=== PATIENT | female | born 1985 | race African-American/Black ===

== ENCOUNTER 2022-05-14 18:05 | Observation (INO) | payer OTHER ==
[2022-05-14] MEDS ORDERED: ELECTROLYTE-148 SOLN 1,000 ML IV SCH ×2 (19:30→20:30)
[2022-05-14 20:02] LABS: CALCIUM 8.3 mg/dL (8.5-10.1)
[2022-05-14 20:03] LABS: ALBUMIN 2.7 g/dl (3.4-5.0); BLOOD UREA NITROGEN 5.1 mg/dL (7-18)
[2022-05-14 20:06] LABS: CREATININE 0.5 mg/dL (0.55-1.3)
[2022-05-14 20:08] LABS: BILIRUBIN,TOTAL 0.5 mg/dL (0.2-1); TOT PROT 5.9 g/dl (6.4-8.2)
[2022-05-14 20:13] LABS: BASO % 0.4 % (0-2.0); EOS % 0.5 % (0-4.5); LYMPH % 29.4 % (8-40); MCH 31.7 pg (25.7-33.7); MCHC 34.4 g/dl (32.0-36.0); MEAN CELL VOLUME 92.1 fl (80-96); MEAN PLT VOLUME 7.6 fl (7.5-11.1); MONO % 6.9 % (3.8-10.2); NEUT % 62.8 % (42.8-82.8); PLATELET COUNT 231 10^3/uL (134-434); RDW 14.2 % (11.6-15.6); WHITE BLOOD COUNT 7.5 K/mm3 (4.0-10.0)
[2022-05-14 20:31] LABS: PH,URINE 6.5 (5.0-8.0); URINE APPEARANCE CLEAR; URINE BILIRUBIN NEGATIVE (NEGATIVE); URINE COLOR YELLOW; URINE GLUCOSE (UA) NEGATIVE (NEGATIVE); URINE KETONE NEGATIVE (NEGATIVE); URINE LEUK ESTERASE NEGATIVE (NEGATIVE); URINE NITRITE NEGATIVE (NEGATIVE); URINE PROTEIN NEGATIVE (NEGATIVE)
[2022-05-14] MEDS ORDERED: BETAMET ACET/BETAMET NA PH 30 MG/5 ML VIAL IM ONE (22:00)
[2022-05-14] MEDS ORDERED: BETAMET ACET/BETAMET NA PH 30 MG/5 ML VIAL ONE (22:09)
[2022-05-15 01:36] VITALS: BMI 30.4
[2022-05-15 01:46] LABS: INR 0.99 (0.83-1.09); PROTHROMBIN TIME (PATIENT) 11.5 SEC (9.7-13.0)
[2022-05-15 01:48] LABS: ACTIVATED PTT 25.7 SECONDS (25.2-36.5)
[2022-05-15] MEDS ORDERED: BETAMET ACET/BETAMET NA PH 30 MG/5 ML VIAL IM ONE (10:45)
[2022-05-15 12:22] VITALS: BP 124/66; PULSE 74; RESP 20; TEMP 98
== END 2022-05-15 16:20 | disposition home or self-care (01) ==
LOC: JDEL 18:05 → JLDR 05-15 00:05
PROVIDERS: ADMIT Obstetrics & Gynecology; ATTEND Obstetrics & Gynecology
PROC: 3E033GC Introduction of Other Therapeutic Substance into Peripheral Vein, Percutaneous Approach (ICD-10-PCS; principal; 2022-05-15)
PROC: 3E0337Z Introduction of Electrolytic and Water Balance Substance into Peripheral Vein, Percutaneous Approach (ICD-10-PCS; 2022-05-15)
DX: O46.93 Antepartum hemorrhage, unspecified, third trimester (principal); Z3A.32 32 weeks gestation of pregnancy
CPT/HCPCS: 36415; 59025; 76817-TC; 76819-TC; 80053; 81003; 85025; 85610; 85730; 86780; 86850; 86900; 86901; 96372; C9803-CS; G0378; U0003; U0005

== ENCOUNTER 2022-05-18 03:43 | Inpatient (IN) | payer OTHER ==
[2022-05-18] MEDS ORDERED: ceFAZolin SODIUM 1 GM VIAL ONE (14:27)
[2022-05-18 14:41] LABS: BASO % 0.4 % (0-2.0); EOS % 0.2 % (0-4.5); HEMATOCRIT 35.5 % (32.4-45.2); HEMOGLOBIN 12.4 GM/dL (10.7-15.3); LYMPH % 28.2 % (8-40); MCH 31.8 pg (25.7-33.7); MEAN CELL VOLUME 90.9 fl (80-96); MEAN PLT VOLUME 7.2 fl (7.5-11.1); NEUT % 63.2 % (42.8-82.8); PLATELET COUNT 232 10^3/uL (134-434); RBC 3.91 M/mm3 (3.60-5.2); RDW 14.3 % (11.6-15.6); WHITE BLOOD COUNT 10.4 K/mm3 (4.0-10.0)
[2022-05-18] MEDS ORDERED: PHENYLEPHRINE HCL 10 MG/1 ML SINGLE DOSE VIAL ONE (14:45)
[2022-05-18] MEDS ORDERED: FENTANYL CITRATE/PF 50 MCG/ML VIAL ONE (14:45)
[2022-05-18] MEDS ORDERED: ONDANSETRON 4 MG/2 ML VIAL ONE (14:45)
[2022-05-18] MEDS ORDERED: morphine SULFATE/PF 1 MG/2 ML (2cc Syringe - QUVA) ONE (14:45)
[2022-05-18] MEDS ORDERED: OXYTOCIN 10 UNITS/ML VIAL ONE (14:45)
[2022-05-18] MEDS ORDERED: KETOROLAC TROMETHAMINE 30 MG/1 ML VIAL ONE (14:45)
[2022-05-18 14:54] LABS: ACTIVATED PTT 24.4 SECONDS (25.2-36.5); INR 0.9 (0.83-1.09); PROTHROMBIN TIME (PATIENT) 10.5 SEC (9.7-13.0)
[2022-05-18 14:58] VITALS: BMI 30.4
[2022-05-18 15:05] LABS: CALCIUM 8.4 mg/dL (8.5-10.1)
[2022-05-18 15:06] LABS: BLOOD UREA NITROGEN 6.9 mg/dL (7-18)
[2022-05-18 15:09] LABS: CREATININE 0.5 mg/dL (0.55-1.3)
[2022-05-18] MEDS ORDERED: ACETAMINOPHEN 325 MG TABLET (FP) PO PRN (15:09)
[2022-05-18] MEDS ORDERED: CEFAZOLIN SODIUM 2 GM in DEXTROSE 5%-WATER 100 ML IVPB ONE (15:09)
[2022-05-18] MEDS ORDERED: METHYLERGONOVINE MALEATE 0.2 MG/1 ML AMP IM PRN (15:09)
[2022-05-18] MEDS ORDERED: ELECTROLYTE-148 SOLN 1,000 ML IV SCH (15:15)
[2022-05-18 16:00] LABS: HIV INTERPRETATION NEGATIVE (NEGATIVE)
[2022-05-18] MEDS: OXYTOCIN 20 UNITS in 0.9% NS 20 UNIT/1,000 ML INFUS.BAG IV SCH (16:30)
[2022-05-18] MEDS ORDERED: OXYTOCIN 20 UNITS in 0.9% NS 20 UNIT/1,000 ML INFUS.BAG IV ONE (16:36)
[2022-05-18] MEDS ORDERED: ONDANSETRON 4 MG/2 ML VIAL IVPUSH PRN (16:39)
[2022-05-18 17:14] LABS: CORD BASE EXCESS -1.8 mmol/L (0-2); CORD HCO3 23.9 mmHg (20-29); CORD PCO2 44.2 mmHg (30-78); CORD pH 7.35 (7.14-7.44)
[2022-05-18 17:16] LABS: CORD HCO3 25.6 mmHg (20-29); CORD PCO2 56.4 mmHg (30-78); CORD pH 7.274 (7.14-7.44)
[2022-05-18] MEDS: CEFAZOLIN 1 GM in DEXTROSE 5%-WATER - 50 ML IVPB SCH (18:34)
[2022-05-19] MEDS: OXYTOCIN 20 UNITS in 0.9% NS 20 UNIT/1,000 ML INFUS.BAG IV SCH (02:15)
[2022-05-19] MEDS: CEFAZOLIN 1 GM in DEXTROSE 5%-WATER - 50 ML IVPB SCH ×2 (02:15→09:18)
[2022-05-19] MEDS ORDERED: oxyCODONE HCL 5 MG TABLET PO PRN (03:09)
[2022-05-19] MEDS: SIMETHICONE 80 MG TAB.CHEW (FP) PO PRN ×2 (06:20→20:41)
[2022-05-19 07:40] LABS: BASO % 0.7 % (0-2.0); EOS % 1.4 % (0-4.5); HEMATOCRIT 32.2 % (32.4-45.2); HEMOGLOBIN 11.5 GM/dL (10.7-15.3); MCH 32.5 pg (25.7-33.7); MCHC 35.8 g/dl (32.0-36.0); MEAN CELL VOLUME 90.8 fl (80-96); MEAN PLT VOLUME 7.5 fl (7.5-11.1); NEUT % 70.9 % (42.8-82.8); PLATELET COUNT 167 10^3/uL (134-434); RBC 3.55 M/mm3 (3.60-5.2); RDW 14.3 % (11.6-15.6); WHITE BLOOD COUNT 8.6 K/mm3 (4.0-10.0)
[2022-05-19] MEDS: ENOXAPARIN NA (PORCINE) 40 MG/0.4 ML DISP.SYRIN SQ SCH (09:18)
[2022-05-19] MEDS: IBUPROFEN 600 MG TABLET (FP) PO PRN ×2 (13:10→20:41)
[2022-05-20] MEDS: BISACODYL 10 MG SUPP.RECT RC PRN (07:53)
[2022-05-20] MEDS: IBUPROFEN 600 MG TABLET (FP) PO PRN ×2 (07:53→13:41)
[2022-05-20] MEDS: SIMETHICONE 80 MG TAB.CHEW (FP) PO PRN ×3 (07:54→21:09)
[2022-05-20] MEDS: NITROFURANTOIN MACROCRYSTAL 50 MG CAPSULE (FP) PO SCH ×3 (09:05→21:08)
[2022-05-20] MEDS: ENOXAPARIN NA (PORCINE) 40 MG/0.4 ML DISP.SYRIN SQ SCH (09:06)
[2022-05-20] MEDS: OXYTOCIN 20 UNITS in 0.9% NS 20 UNIT/1,000 ML INFUS.BAG IV SCH (19:32)
[2022-05-20] MEDS: DOCUSATE SODIUM 100 MG CAPSULE (FP) PO PRN (21:09)
[2022-05-21] MEDS: BISACODYL 10 MG SUPP.RECT RC PRN (00:30)
[2022-05-21 07:16] LABS: BASO % 0.3 % (0-2.0); EOS % 1.2 % (0-4.5); HEMATOCRIT 33.9 % (32.4-45.2); LYMPH % 23.2 % (8-40); MCH 32.3 pg (25.7-33.7); MCHC 35.5 g/dl (32.0-36.0); MEAN CELL VOLUME 91.1 fl (80-96); MEAN PLT VOLUME 7.8 fl (7.5-11.1); MONO % 6.7 % (3.8-10.2); NEUT % 68.6 % (42.8-82.8); PLATELET COUNT 213 10^3/uL (134-434); RBC 3.73 M/mm3 (3.60-5.2); RDW 14.2 % (11.6-15.6); WHITE BLOOD COUNT 8.1 K/mm3 (4.0-10.0)
[2022-05-21] MEDS: NITROFURANTOIN MACROCRYSTAL 50 MG CAPSULE (FP) PO SCH ×2 (09:25→21:27)
[2022-05-21] MEDS: ENOXAPARIN NA (PORCINE) 40 MG/0.4 ML DISP.SYRIN SQ SCH (09:27)
[2022-05-21] MEDS: DOCUSATE SODIUM 100 MG CAPSULE (FP) PO PRN (21:27)
[2022-05-22] MEDS: ENOXAPARIN NA (PORCINE) 40 MG/0.4 ML DISP.SYRIN SQ SCH (10:58)
[2022-05-22] MEDS: NITROFURANTOIN MACROCRYSTAL 50 MG CAPSULE (FP) PO SCH (10:58)
[2022-05-22 11:14] VITALS: BP 120/78; PULSE 76; RESP 18; TEMP 98.5
== END 2022-05-22 14:25 | disposition home or self-care (01) | DRG 540 ==
LOC: JLDR 03:43 → UNDOADMIN 03:43 → JLDR 13:43 → J3W 18:00
PROVIDERS: ADMIT Obstetrics & Gynecology; ATTEND Obstetrics & Gynecology
PROC: 10D00Z1 Extraction of Products of Conception, Low, Open Approach (ICD-10-PCS; principal; 2022-05-18)
DX: O42.013 Preterm premature rupture of membranes, onset of labor within 24 hours of rupture, third trimester (principal); O34.211 Maternal care for low transverse scar from previous cesarean delivery; O75.3 Other infection during labor; N39.0 Urinary tract infection, site not specified; B95.2 Enterococcus as the cause of diseases classified elsewhere; O99.214 Obesity complicating childbirth; E66.9 Obesity, unspecified; Z3A.32 32 weeks gestation of pregnancy; Z37.0 Single live birth; Z90.79 Acquired absence of other genital organ(s); Z90.721 Acquired absence of ovaries, unilateral
CPT/HCPCS: 36415; 36600; 80048; 82803; 85025; 85610; 85730; 86780; 86850; 86900; 86901; 87389; 88307-TC; 94010; C9803-CS; U0003; U0005

== ENCOUNTER 2022-09-07 05:43 | Day surgery (SDC) | payer OTHER ==
[2022-09-02 12:43] VITALS: BMI 28.5
[2022-09-07] MEDS ORDERED: SUCCINYLCHOLINE CHLORIDE 200 MG/10 ML SYRINGE ONE (07:05)
[2022-09-07] MEDS ORDERED: PROPOFOL 20 ML ONE (07:06)
[2022-09-07] MEDS ORDERED: MIDAZOLAM HCL 2 MG/2 ML SINGLE DOSE VIAL ONE (07:06)
[2022-09-07] MEDS ORDERED: ACETAMINOPHEN INJECTION 100 ML IVPB ONE (07:32)
[2022-09-07] MEDS ORDERED: ceFAZolin SODIUM 1 GM VIAL IVPB ONE (08:00)
[2022-09-07] MEDS ORDERED: DEXAMETHASONE SOD PHOSPHATE 4 MG/1 ML VIAL ONE (08:13)
[2022-09-07] MEDS ORDERED: ceFAZolin SODIUM 1 GM VIAL ONE (08:13)
[2022-09-07] MEDS ORDERED: ONDANSETRON 4 MG/2 ML VIAL ONE (08:13)
[2022-09-07] MEDS ORDERED: LIDOCAINE HCL 2% 100 MG/5 ML DISP.SYRIN ONE (08:18)
[2022-09-07] MEDS ORDERED: oxyCODONE HCL 5 MG TABLET PO PRN ×2 (09:55→10:06)
[2022-09-07] MEDS ORDERED: LACTATED RINGERS SOLUTION 1,000 ML IV SCH (10:00)
[2022-09-07] MEDS ORDERED: IBUPROFEN 800 MG/8 ML IJ IVPB PRN (10:06)
[2022-09-07] MEDS ORDERED: IBUPROFEN 600 MG TABLET (FP) PO PRN (10:06)
[2022-09-07] MEDS ORDERED: ONDANSETRON 4 MG/2 ML VIAL IVPUSH PRN (10:06)
[2022-09-07] MEDS ORDERED: ELECTROLYTE-148 SOLN 1,000 ML IV SCH (10:15)
[2022-09-07] MEDS ORDERED: MEPERIDINE HCL 25 MG/ML VIAL ONE (11:53)
[2022-09-07 13:48] VITALS: BP 111/64; PULSE 79; RESP 18; TEMP 97.1
== END 2022-09-07 13:50 | disposition home or self-care (01) ==
LOC: JASU-SURG 05:43
PROVIDERS: ATTEND Obstetrics & Gynecology
PROC: 0UBL0ZZ Excision of Vestibular Gland, Open Approach (ICD-10-PCS; principal; 2022-09-07 07:30)
DX: N75.0 Cyst of Bartholin's gland (principal)
CPT/HCPCS: 81025; 87070; 87205; 94760